=== PATIENT | female | born 1965 | race Two or more races ===

== ENCOUNTER → 2020-04-10 | Emergency (ER) | payer MEDICAID, OTHER ==
[~2020-04-10] VITALS: Ht 154.9 cm; Wt 63.5 kg
[~2020-04-10] MED LIST: ALUM & MAG HYDROX-SIMETH LIQ(MAALOX) 30 ML PO ONE; DONNATAL 5ml ORAL Elix (BELLADONNA ALK-PHENOBARB) PO ONE; FAMOTIDINE 20 MG TAB PO ONE; IOHEXOL 350 MG/ML 100ML IJ ONE; METOCLOPRAMIDE HCL 5MG/ml INJ 2ml VIAL IV ONE
[2020-04-10 08:46] LABS: Basophils # (auto) 0 10 ^3/uL (0-0.2); Basophils % (auto) 0.8 % (0.0-2.0); Eosinophils # (auto) 0.1 10 ^3/uL (0-0.8); Eosinophils % (auto) 2.2 % (0.0-7.0); Hematocrit 42.1 % (36.0-46.0); Lymphocytes # (auto) 1.5 10 ^3/uL (0.4-5.4); Lymphocytes % (auto) 26.2 % (10.0-50.0); Mean Corpuscular Hemoglobin 28.4 pg (28.0-32.0); Mean Corpuscular Hgb Conc. 33.3 g/dL (32.0-36.0); Mean Corpuscular Volume 85.3 fL (80.0-100.0); Monocytes # (auto) 0.3 10 ^3/uL (0-1.3); Monocytes % (auto) 5.7 % (0.0-12.0); Neutrophils # (auto) 3.7 10 ^3/uL (1.6-8.6); Neutrophils % (auto) 65.1 % (37.0-80.0); Platelet Count (auto) 260 10^3/uL (140-450); Red Blood Cells 4.93 10^6/uL (4.0-5.20); Red Cell Distribution Width 13.7 % (11.8-14.3); White Blood Cell 5.7 10^3/uL (4.4-10.8)
[2020-04-10 09:08] LABS: Albumin 3.6 g/dL (3.4-5.0); Anion Gap 5 (5-15); Blood Urea Nitrogen 17 mg/dL (7-18); Calcium 8.5 mg/dL (8.5-10.1); Carbon Dioxide 27 mmol/L (21-32); Chloride 108 mmol/L (98-107); Glucose 179 mg/dL (74-106); Potassium 3.5 mmol/L (3.5-5.1); Sodium 140 mmol/L (136-145)
[2020-04-10 09:09] LABS: INR 0.96 (0.9-1.15); Partial Thromboplastin Time 25.4 sec (23.0-31.2)
[2020-04-10 09:13] LABS: Alanine Aminotransferase 105 U/L (13-56); Alkaline Phosphatase 111 U/L (45-117); Aspartate Aminotransferase 131 U/L (15-37); BUN/Creatinine Ratio 29.8; Bilirubin, Total 0.9 mg/dL (0.2-1.0); GFR African American 142 mL/min; GFR Non-African American 117 mL/min; Total Protein 7.3 g/dL (6.4-8.2)
[2020-04-10 09:16] LABS: Magnesium 2.2 mg/dL (1.6-2.6)
[2020-04-10 10:37] VITALS: BP 163/63
[2020-04-10 10:38] LABS: Urine Bacteria NONE SEEN /hpf (None Seen); Urine Blood Negative /uL (Negative); Urine Specific Gravity 1.031 (1.001-1.035); Urine WBC <1 /hpf (0 - 5)
== END | disposition home or self-care (01) ==
LOC: EDBD 08:17 → ER 08:17
DX: R10.30 Lower abdominal pain, unspecified (principal); E11.9 Type 2 diabetes mellitus without complications; I10 Essential (primary) hypertension; K57.90 Diverticulosis of intestine, part unspecified, without perforation or abscess without bleeding; R79.89 Other specified abnormal findings of blood chemistry; Z90.49 Acquired absence of other specified parts of digestive tract
CPT/HCPCS: 36415; 71046; 74177; 80053; 81001; 83690; 83735; 83880; 84484; 85025; 85610; 85730; 93005; 96374; 99285; J2765; Q9967